=== PATIENT | male | born 1955 | race Caucasian/White ===

== ENCOUNTER → 2019-07-11 | Outpatient (CLI) | payer MEDICARE, OTHER ==
[~2019-07-11] MED LIST: GABA300 PO; GABA400 PO; HYDACE5 PO; MULVITMIND PO; OXYACE5T PO; Prinivil10 MG PO; RXOXYACE PO; ZOLP10 PO; [UNRECOGNIZED DRUG - OTHER] PO
[2019-07-12 13:59] LABS: Stool Occult Bld Immuno 1 Negative (NEGATIVE)
== END | disposition home or self-care (01) ==
LOC: LAB EV 11:09
PROVIDERS: Family Medicine
DX: D50.9 Iron deficiency anemia, unspecified (principal)
CPT/HCPCS: 82274

== ENCOUNTER 2019-08-26 08:31 | Day surgery (SDC) | payer MEDICARE, OTHER ==
[~2019-08-26] VITALS: Ht 182.9 cm; Wt 80.2 kg
[~2019-08-26 08:31] MED LIST changes: -[UNRECOGNIZED DRUG - OTHER] PO
[2019-08-26] MEDS ORDERED: [UNRECOGNIZED DRUG - OTHER] PO (08:56)
--- NOTE | 2019-08-26 09:09 | NUR ---
Ambulatory in Day SurgeryPatient states colon prep results clear. History, Chart, Medications and Allergies reviewed before start of procedure.Lungs clear T/O to Auscultation. Patient confirms NPO status and agrees with scheduled surgery. Patient States Post-Procedure ride home has been arranged.
--- NOTE | 2019-08-27 11:00 | NUR ---
08/27/19 Harmony Pagan EDIT TO STAFF FOR VERIFICATION PURPOSES.
== END 2019-08-26 11:30 | disposition home or self-care (01) ==
LOC: ORSCMMR 08:31 → ORD 09:30 → ORSCMMR 11:30
PROVIDERS: Internal Medicine Gastroenterology
PROC: 0DBH8ZX Excision of Cecum, Via Natural or Artificial Opening Endoscopic, Diagnostic (ICD-10-PCS; principal; 2019-08-26 09:30)
PROC: 0DB68ZX Excision of Stomach, Via Natural or Artificial Opening Endoscopic, Diagnostic (ICD-10-PCS; principal; 2019-08-26 09:30)
PROC: 0D5H8ZZ Destruction of Cecum, Via Natural or Artificial Opening Endoscopic (ICD-10-PCS; principal; 2019-08-26 09:30)
DX: D50.0 Iron deficiency anemia secondary to blood loss (chronic) (principal); Z86.010 Personal history of colon polyps; K29.70 Gastritis, unspecified, without bleeding; Q27.33 Arteriovenous malformation of digestive system vessel; I10 Essential (primary) hypertension; Z79.899 Other long term (current) drug therapy
CPT/HCPCS: 88305; 88342; J2250; J2704; J7120